=== PATIENT | male | born 1950 | race Hispanic/Latino ===

== ENCOUNTER 2016-06-16 19:18 | Emergency (ER) | payer MEDICARE ==
[2016-06-16 21:16] LABS: Eosinophils % (Auto) 3.8 % (0.0-4.3); Hematocrit 38.4 % (35.5-45.6); Hemoglobin 12.7 gm/dl (11.8-15.2); Mean Corpuscular HGB Conc 33 % (32-34); Mean Corpuscular Hemoglobin 30 pg (28-32); Mean Corpuscular Volume 90 fl (84-94); Platelet Count 168 K/mm3 (140-440); Red Blood Count 4.25 M/mm3 (3.65-5.03); Red Cell Distribution Width 15.3 % (13.2-15.2); White Blood Count 4.6 K/mm3 (4.5-11.0)
[2016-06-16 21:44] LABS: Anion Gap 21 mmol/L; Blood Urea Nitrogen 15 mg/dL (9-20); Calcium 8.7 mg/dL (8.4-10.2); Carbon Dioxide 24 mmol/L (22-30); Chloride 93.3 mmol/L (98-107); Glucose 89 mg/dL (75-100); Magnesium 1.6 mg/dL (1.7-2.3); Potassium 3.7 mmol/L (3.6-5.0); Sodium 135 mmol/L (137-145)
[2016-06-16] MEDS ORDERED: TYLENOL ONE (23:04)
[2016-06-16] MEDS ORDERED: TYLENOL PO ONE (23:08)
[2016-06-17 03:34] LABS: Bilirubin,Urine NEG (Negative); Blood,Urine SM (Negative); Ketones,Urine NEG (Negative); Leukocyte Esterase,Urine NEG (Negative); Mucus,Urine FEW /HPF; Nitrite,Urine NEG (Negative); Protein,Urine <15 mg/dL mg/dL (Negative); Urobilinogen,Urine < 2.0 mg/dL (<2.0); WBC,Urine < 1.0 /HPF (0.0-6.0)
--- NOTE | 2016-06-17 06:20 | Emergency Department Report ---
ED Shortness of Breath HPI - General Chief Complaint: Dyspnea/Respdistress Stated Complaint: DIFF BREATHING Time Seen by Provider: 06/17/16 06:17 Source: patient Mode of arrival: Ambulatory Limitations: No Limitations - History of Present Illness Initial Comments: Patient states that 4 days ago he had an episode of chest pain which is proximally 4 hours in duration. It was not associated with exertion nor dyspnea nor diaphoresis. It was not accompanied by any change in his chronic cough. He denied any leg pain or swelling. He was sent here by an urgent care physician for further evaluation. He does have periodic dyspnea. Has a history of remote smoking. He has a chronic nonproductive cough. He has had no recent fever or chills. A she is early on acute two-week chemotherapy. He was placed on Augmentin by the urgent care physician for presumptive infectious process. 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 MD Complaint: shortness of breath, cough (cough is chronic without change), chest pain (chest pain without recurrence 4 days ago) -: Gradual Radiation: other (nonradiating chest pain) Severity: mild, moderate Quality: dull Consistency: now resolved Improves With: nothing Worsens With: nothing Associated Symptoms: denies other symptoms (no other acute symptoms) - Related Data Previous Rx's Medication Instructions Recorded Last Taken Type Albuterol Sulfate [Ventolin HFA] 2 puff IH Q4H PRN #1 hfa.aer.ad 06/17/16 Unknown Rx Benzonatate [Tessalon Perles] 100 mg PO Q8HR #14 capsule 06/17/16 Unknown Rx Allergies Allergy/AdvReac Type Severity Reaction Status Date / Time Penicillins Allergy Hives Verified 06/16/16 19:44 ED Review of Systems ROS: Stated complaint: DIFF BREATHING Other details as noted in HPI Constitutional: denies: chills, fever Eyes: denies: eye pain, eye discharge, vision change ENT: denies: ear pain, throat pain Respiratory: no symptoms reported, cough. denies: shortness of breath, wheezing Cardiovascular: as per HPI, chest pain. denies: palpitations Endocrine: no symptoms reported Gastrointestinal: denies: abdominal pain, nausea, diarrhea Genitourinary: denies: urgency, dysuria Musculoskeletal: denies: back pain, joint swelling, arthralgia Skin: denies: rash, lesions Neurological: denies: headache, weakness, paresthesias Psychiatric: denies: anxiety, depression Hematological/Lymphatic: denies: easy bleeding, easy bruising ED Past Medical Hx - Past Medical History Previous Medical History?: Yes Hx of Cancer: Yes (throat, tongue, spine, liver) Additional medical history: Radiation, and 5 years of reasearch study - Surgical History Past Surgical History?: Yes Additional Surgical History: Hernia repair - Social History Smoking Status: Former Smoker Substance Use Type: None - Medications Home Medications: Home Medications Medication Instructions Recorded Confirmed Last Taken Type Albuterol Sulfate [Ventolin HFA] 2 puff IH Q4H PRN #1 hfa.aer.ad 06/17/16 Unknown Rx Benzonatate [Tessalon Perles] 100 mg PO Q8HR #14 capsule 06/17/16 Unknown Rx ED Physical Exam - General Limitations: No Limitations General appearance: alert, in no apparent distress - Head Head exam: Present: atraumatic, normocephalic - Eye Eye exam: Present: normal appearance. Absent: scleral icterus - ENT ENT exam: Present: normal exam, mucous membranes moist - Neck Neck exam: Present: normal inspection. Absent: tenderness, meningismus - Respiratory Respiratory exam: Present: normal lung sounds bilaterally. Absent: respiratory distress - Cardiovascular Cardiovascular Exam: Present: regular rate, normal rhythm. Absent: systolic murmur, diastolic murmur, rubs, gallop - GI/Abdominal GI/Abdominal exam: Present: soft, normal bowel sounds. Absent: distended, tenderness, guarding, rebound, rigid - Rectal Rectal exam: Present: deferred - Extremities Exam Extremities exam: Present: normal inspection - Back Exam Back exam: Present: normal inspection - Neurological Exam Neurological exam: Present: alert, oriented X3, CN II-XII intact. Absent: motor sensory deficit - Psychiatric Psychiatric exam: Present: normal affect, normal mood - Skin Skin exam: Present: warm, dry, intact, normal color. Absent: rash ED Course Vital Signs 06/16/16 06/16/16 06/17/16 19:35 23:07 00:47 Temperature 100.1 F H Pulse Rate 74 67 91 H Respiratory 22 20 18 Rate Blood Pressure 109/78 Blood Pressure 135/82 106/57 [Right] O2 Sat by Pulse 100 97 95 Oximetry 06/17/16 06/17/16 06/17/16 03:19 04:48 05:15 Temperature 98.9 F Pulse Rate 62 111 H Respiratory 18 24 Rate Blood Pressure Blood Pressure 109/53 111/65 [Right] O2 Sat by Pulse 92 100 Oximetry 06/17/16 06:48 Temperature Pulse Rate 94 H Respiratory 18 Rate Blood Pressure Blood Pressure 102/64 [Right] O2 Sat by Pulse 99 Oximetry - Reevaluation(s) Reevaluation #1: Patient continues to be asymptomatic here. His chest CT showed some lymphadenopathy and liver metastases but no acute pulmonary process. He was not dyspneic here. His pulse oximetry was well maintained. He is appropriate for outpatient referral. I did discuss the need for cardiology evaluation of his chest pain 4 days ago. He states, "[facility] has had covered". 06/17/16 08:31 ED Medical Decision Making - Lab Data Result diagrams: 06/16/16 20:46 06/16/16 20:46 Laboratory Results - last 24 hr 06/16/16 06/16/16 06/17/16 20:46 20:46 03:19 WBC 4.6 RBC 4.25 Hgb 12.7 Hct 38.4 MCV 90 MCH 30 MCHC 33 RDW 15.3 H Plt Count 168 Lymph % (Auto) 12.6 L [place] % (Auto) 14.9 H Eos % (Auto) 3.8 Baso % (Auto) 1.0 Lymph # 0.6 L [place] # 0.7 Eos # 0.2 Baso # 0.0 Seg Neutrophils % 67.7 Seg Neutrophils # 3.1 Sodium 135 L Potassium 3.7 Chloride 93.3 L Carbon Dioxide 24 Anion Gap 21 BUN 15 Creatinine 1.2 Estimated GFR > 60 BUN/Creatinine Ratio 12.50 Glucose 89 Lactic Acid Calcium 8.7 Magnesium 1.6 L Troponin T < 0.010 C-Reactive Protein Urine Color Straw Urine Turbidity Clear Urine pH 6.0 Ur Specific [place] 1.005 Urine Protein <15 mg/dl Urine Glucose (UA) Neg Urine Ketones Neg Urine Blood Sm Urine Nitrite Neg Urine Bilirubin Neg Urine Urobilinogen < 2.0 Ur Leukocyte Esterase Neg Urine WBC (Auto) < 1.0 Urine RBC (Auto) 2.0 Urine Mucus Few 06/17/16 06/17/16 03:33 03:33 WBC RBC Hgb Hct MCV MCH MCHC RDW Plt Count Lymph % (Auto) [place] % (Auto) Eos % (Auto) Baso % (Auto) Lymph # [place] # Eos # Baso # Seg Neutrophils % Seg Neutrophils # Sodium Potassium Chloride Carbon Dioxide Anion Gap BUN Creatinine Estimated GFR BUN/Creatinine Ratio Glucose Lactic Acid 1.5 Calcium Magnesium Troponin T C-Reactive Protein 0.90 Urine Color Urine Turbidity Urine pH Ur Specific [place] Urine Protein Urine Glucose (UA) Urine Ketones Urine Blood Urine Nitrite Urine Bilirubin Urine Urobilinogen Ur Leukocyte Esterase Urine WBC (Auto) Urine RBC (Auto) Urine Mucus Critical care attestation.: If time is entered above; I have spent that time in minutes in the direct care of this critically ill patient, excluding procedure time. ED Disposition Clinical Impression: Hepatic metastases Dyspnea Qualifiers: Dyspnea type: unspecified Qualified Code(s): R06.00 - Dyspnea, unspecified Chest pain Qualifiers: Chest pain type: unspecified Qualified Code(s): R07.9 - Chest pain, unspecified Disposition: DISCHARGED TO HOME OR SELFCARE Is pt being admited?: No Does the pt Need Aspirin: No Condition: Stable Instructions: Chest Pain (ED), Dyspnea (ED), Chronic Cough (ED) Additional Instructions: I did not find anything on your workup to suggest an infection. I do not think he needs to take the Augmentin that was previously prescribed. I've given you a prescription for Tessalon perles for cough. Might want to try a Ventolin inhaler if you feel like U have some shortness of breath possibly it is due to bronchospasm. In any case I would recommend outpatient evaluation by a corporate analyst. I'm going to give you the name of the one on-call. This also could be done at [facility] as you are receiving further care there. Return to the emergency department any recurrent chest pain. Prescriptions: Albuterol Sulfate [Ventolin HFA] 2 puff IH Q4H PRN #1 hfa.aer.ad PRN Reason: Shortness Of Breath Benzonatate [Tessalon Perles] 100 mg PO Q8HR #14 capsule Referrals: CAROLINA MATIAS MD [Primary Care Provider] - 3-5 Days SHANT HARRIS MD [Staff Physician] - 2-3 Days Time of Disposition: 08:34
[2016-06-17] MEDS ORDERED: DUONEB 0.5 MG-3 MG/3 ML SOLN IH ONE (06:42)
[2016-06-17 07:23] LABS: Alanine Aminotransferase 14 units/L (7-56); Albumin 3.4 g/dL (3.9-5); Albumin/Globulin Ratio 1.1 %; Alkaline Phosphatase 78 units/L (35-129); Bilirubin,Total 0.2 mg/dL (0.1-1.2); Total Protein 6.4 g/dL (6.3-8.2)
[2016-06-17 07:26] LABS: INR 1.02 (0.87-1.13)
[2016-06-17 07:32] LABS: Creatine Kinase MB 1.4 ng/mL (0.0-4.0)
[2016-06-17 07:34] LABS: Creatine Kinase 158 units/L (55-170)
[2016-06-17 07:47] LABS: Bilirubin,Direct < 0.2 mg/dL (0-0.2)
--- NOTE | 2016-06-17 08:17 | Cat Scan Report ---
CTA CHEST INDICATION: Difficulty breathing. History of cancer. COMPARISON: None similar. FINDINGS: Chest CTA performed following intravenous administration of 100 cc of Omnipaque 350. Rotational MIP's also obtained. Normal heart size. No effusions. No aortic aneurysm, dissection or suspicious pulmonary arterial filling defects. Mild aortic arch calcifications. Normal airway. Unremarkable thyroid. A vascular space lymph node measures 1 cm on axial series 2, image 97. A subcarinal lymph node is approximately 0.9 cm in the short axis, axial image 122. Few small right distal paratracheal lymph nodes also noted. No other definite size significant adenopathy. Mild atelectasis/scarring in the right lower lobe medially noted adjacent to prominent/large right sided thoracic osteophytes. Subtle fascial/septal noncalcified nodular densities measuring 4 mm in the left upper lobe, axial images 55 and 68, series 2 presumed post inflammatory. No other focal suspicious lung nodules or mass. Nonspecific distal esophageal wall thickening, not excluded for gastroesophageal reflux and/or hiatal hernia, amongst others. Imaged upper abdomen demonstrates at least 2 hypodense right hepatic metastases, the larger 2.9 cm on axial image 270, series 2. [place] hepatis lymphadenopathy measures up to 1.6 cm, axial image 254, series 2. Mild colonic diverticulosis. Approximately 2.4 cm incompletely imaged possible duodenal diverticulum on axial image 286. Multilevel thoracic spondylosis. CONCLUSION: 1. No CT evidence of pulmonary embolism, though metastatic/neoplastic disease noted in the imaged upper abdomen, as described. 2. Various other incidental findings, as above. I phoned the above results to Dr. Restrepo in the ER, 8 AM, 06/17/2016. Thank you for the opportunity to participate in this patient's care.
[2016-06-17 08:30] VITALS: BP 121/76
--- NOTE | 2016-06-17 09:33 | XRay Report ---
CHEST 2 VIEWS INDICATION: Shortness of breath, productive cough, chest pain for 3 days. Currently liver cancer. Patient has had mouth/throat cancer. COMPARISON: 01/28/2007. FINDINGS: PA and lateral chest radiographs now demonstrate normal cardiomediastinal silhouette and clear, well expanded lungs. No pleural effusions or CHF. Aortic knob calcifications. Multilevel thoracic spondylosis with moderate degenerative spurring. Demineralized bones. CONCLUSION: No acute disease in the chest. Thank you for the opportunity to participate in this patient's care.
== END 2016-06-17 08:57 | disposition home or self-care (01) ==
LOC: ED 19:18
DX: R06.00 Dyspnea, unspecified (principal); R07.9 Chest pain, unspecified; C78.7 Secondary malignant neoplasm of liver and intrahepatic bile duct; C02.9 Malignant neoplasm of tongue, unspecified; C32.9 Malignant neoplasm of larynx, unspecified; Z87.891 Personal history of nicotine dependence; Z88.0 Allergy status to penicillin
CPT/HCPCS: 36415; 71020; 71275; 80048; 80074; 81001; 82140; 82550; 82553; 83735; 83880; 84484; 85025; 85379; 85610; 85730; 86140; 87040; 87400; 93005; 93010; 99285; Q9967